=== PATIENT | female | born 1960 | race Hispanic/Latino ===

== ENCOUNTER 2021-10-04 21:35 | Emergency (ER) | payer SELFPAY ==
[~2021-10-04] VITALS: Ht 149.9 cm; Wt 86.2 kg
[2021-10-05] MEDS ORDERED: MORPHINE 4 MG SYG IM ONE (01:00)
[2021-10-05] MEDS ORDERED: ORPHENADRINE CITRATE 30 MG/ML ML IM ONE (03:00)
[2021-10-05] MEDS ORDERED: DEXAMETHASONE SOD PHOSPHATE 4 MG/ML 1ML VIAL IM ONE (03:00)
[2021-10-05] MEDS ORDERED: LIDOCAINE 5% TOPICAL PATCH TP ONE (03:00)
[2021-10-05] MEDS ORDERED: MORPHINE 4 MG SYG ONE (03:18)
[2021-10-05 03:22] LABS: BASOPHILS % (AUTO) 0.3 % (0.0-5.0); EOSINOPHILS % (AUTO) 2.9 % (0.0-8.0); LYMPHOCYTES % (AUTO) 33.1 % (21.0-51.0); MEAN CORPUSCULAR HGB CONC 32.9 g/dL (32.0-36.0); MEAN CORPUSCULAR VOLUME 88.2 fL (79-99); MONOCYTES % (AUTO) 9.8 % (3.0-13.0); NEUTROPHILS % (AUTO) 53.7 % (40.0-77.0); PLATELET COUNT (AUTO) 142 K/uL (130-400); RED BLOOD CELL COUNT(AUTO) 4.76 MIL/uL (4.00-5.50); RED CELL DISTRIBUTION WIDTH 12.8 % (11.0-15.5); WHITE BLOOD COUNT (AUTO) 6.2 K/uL (4.8-10.8)
[2021-10-05 03:32] LABS: CREATININE 0.7 mg/dL (0.5-1.5); POTASSIUM 4.1 mmol/L (3.5-5.1)
[2021-10-05 03:36] LABS: ALBUMIN 3.7 g/dL (3.5-5.0); BILIRUBIN,TOTAL 0.2 mg/dL (0.2-1.0)
[2021-10-05 03:39] LABS: APPEARANCE,URINE Cloudy (CLEAR); BILIRUBIN,URINE Small (NEGATIVE); COLOR,URINE Dark Yellow (YELLOW); GLUCOSE, URINE (UA) Negative (NEGATIVE); KETONES,URINE Trace mg/dL (NEGATIVE); LEUKOCYTE ESTERASE ,URINE Negative (NEGATIVE); NITRATE,URINE Negative (NEGATIVE); OCCULT BLOOD,URINE Negative (NEGATIVE); PROTEIN,URINE Trace mg/dL (NEGATIVE)
[2021-10-05] MEDS ORDERED: NAPR-1180 PO (03:59)
[2021-10-05] MEDS ORDERED: CYCL5TAB PO (03:59)
[2021-10-05 04:04] LABS: BACTERIA,URINE None Seen /HPF (None Seen); RBC,URINE None Seen /HPF (0-1)
[2021-10-05 04:05] LABS: CALCIUM OXALATE CRYSTALS,UR Moderate /LPF (None Seen); MUCUS,URINE Moderate LPF (None Seen); SQUAMOUS EPITHELIAL CELL,UR Few /HPF (0-2)
[2021-10-05 04:50] VITALS: BP 108/76
== END 2021-10-05 04:50 | disposition home or self-care (01) ==
LOC: EDH 21:35
DX: M54.50 Low back pain, unspecified (principal); R10.9 Unspecified abdominal pain; R63.0 Anorexia; I10 Essential (primary) hypertension
CPT/HCPCS: 36415; 72131; 80053; 81001; 82550; 83690; 84484; 85025; 96372 ×3; 99284; J1100; J2270; J2360